=== PATIENT | female | born 1970 | race Caucasian/White ===

== ENCOUNTER → 2020-02-01 | Outpatient (CLI) | payer OTHER ==
--- NOTE | 2020-02-01 14:06 | RAD ---
EXAM: Dual energy x-ray absorptiometry (DEXA). HISTORY: Screening. COMPARISON: None available. TECHNIQUE: Dual energy x-ray absorptiometry of the lumbar spine and right hip was performed. Calculation of bone mineral density based on standard deviations above or below the expected young adult normal value (T-score) was completed. FINDINGS: The average bone mineral density in the 1st through 4th lumbar vertebrae is 1.479 g/cmxcm, corresponding with a T-score of 2.5. The average total bone mineral density in the right hip is 1.068 g/cmxcm, corresponding with a T-score of 0.9. IMPRESSION: Findings are within the range of normal bone density with relation to the spine and right hip. Note: Definitions established by the [employer]: 1. Normal: T-score is -1.0 or above. 2. Osteopenia: T-score is between -1.0 and -2.5 . 3. Osteoporosis: T-score is -2.5 or below. Electronically signed by: Janey Sams MD (02/01/2020 2:03 PM) [id number]
== END ==
LOC: DXRAD 10:08
PROVIDERS: ATTEND Nurse Practitioner Family
DX: Z01.89 Encounter for other specified special examinations (principal); Z79.899 Other long term (current) drug therapy
CPT/HCPCS: 77080